=== PATIENT | female | born 1945 | race Caucasian/White ===

== ENCOUNTER 2016-04-29 07:18 | Day surgery (SDC) | payer MEDICARE ==
[~2016-04-29] VITALS: Ht 160 cm; Wt 54.0 kg
[~2016-04-29 07:18] MED LIST: CALC-3 PO; CROM10DR2 OP; LEVO75TA4 PO; MELO15TA14 PO; MULT1CAP33 PO
[2016-04-29 07:32] VITALS: BP 151/85; PULSE 67; RESP 16; O2SAT 99
[2016-04-29] MEDS ORDERED: CHOL10008 PO (07:37)
[2016-04-29] MEDS ORDERED: Sodium Chloride LOK Flush 10 mL Syringe IV PRN (07:40)
[2016-04-29] MEDS ORDERED: fentaNYL-PF 50 mCg/mL 2 mL Inj IVPUSH PRN (07:40)
[2016-04-29] MEDS: 0.9% Sodium Chloride 1,000 ML IV PRN ×2 (07:41→08:15)
[2016-04-29 08:38] VITALS: BP 161/81; PULSE 67; RESP 16; O2SAT 97
--- NOTE | 2016-04-29 08:38 | PCM.ENDCOL ---
Colonoscopy Date of Service: Apr 29, 2016 Physician Ricardo Natarajan MD Pre Procedure Diagnosis: Screening colon cancer history of colon polyp Post Procedure Dx & Findings: Colon polyp hemorrhoids and diverticuli Procedure Colonoscopy Prep adequate Withdrawal 18 minutes PROCEDURE IN DETAIL: After unremarkable examination of the Olympus video colonoscope was inserted patient's anal canal and was advanced to cecum. Landmarks are identified including the ileocecal valve and appendiceal orifice. Scope was withdrawn systematically. In the transverse colon, there was a 2 mm polyp completely using cold snare. In the sigmoid colon there was a 1 mm polyp which was removed completely using cold forceps. In the sigmoid colon there was a 3 mm polyp which was removed completely using cold snare. The mucosa of the cecum, ascending, transverse, descending, sigmoid, rectal mucosa lined with whitish, pink, smooth, glistening, normal-appearing mucosa, normal fine branching, underlying vascularity, normal haustra. The patient tolerated procedure and was transported to observation area. In the sigmoid colon there are several medium-sized diverticula. In the rectum retroflexion was done which showed hemorrhoids and anal canal was inspected carefully on the way out and hemorrhoids noted. Impression Polyps 3 status post complete removal Hemorrhoids Diverticuli Personal history of colon polyp Recommendation Repeat colonoscopy 3 years Diverticular diet Presedation Assessment Risks and Benefits Informed consent was obtained from the patient after all risks and benefits including but not limited to drug reaction, infection, pain, bleeding, perforation, as well as alternatives were discussed. Patient monitoring Continuous pulse oximetry, cardiac monitoring, blood pressure monitoring, IV access, and oxygen at 2L per nasal cannula. Periprocedural Fentanyl: Fentanyl 125mcg Incrementally Midazolam: Midazolam 6mg Incrementally Complications There were no periprocedural complications identified. Post Procedure Plan Post Procedure Recommendations 1. Restrict activities today. 2. Resume normal activities in the morning. 3. Resume medications. 4. Patient informed of normal post procedure side effects as bloating, drowsiness, blood streaking in the stool. 5. average risk CRCS. If colon polyps come back as: -Hyperplastic- can repeat colonoscopy in 10 years -Tubular adenoma- repeat colonoscopy in 5 years -Tubulovillous/villous adenoma- repeat colonoscopy in 3 years -If any dysplasia- return to clinic as soon as possible 6. Please don't hesitate to call me with any questions. Ricardo Natarajan MD Apr 29, 2016 08:38
[2016-04-29 08:48] VITALS: BP 171/84; PULSE 70; RESP 16; O2SAT 97
[2016-04-29 08:57] VITALS: BP 168/95; PULSE 69; RESP 16; O2SAT 97
--- NOTE | 2016-04-30 11:00 | PATH ---
SURGICAL PATHOLOGY Attending Physician:Ricardo Natarajan M.D. CASE STATUS: Signed Out PATIENT NAME: DANIELA CASTILLO PID: [id number] : 1945 DATE COLLECTED:04/29/2016 16:04 SPECIMEN: 1: Colon, Biopsy 2: Colon, Biopsy CLINICAL HISTORY: 1.TRANSVERSE POLYP 2.SIGMOID POLYP FINAL DIAGNOSIS: 1.TRANSVERSE COLON POLYP: TUBULAR ADENOMA INVOLVING BOTH BIOPSY FRAGMENTS. 2.SIGMOID COLON POLYP: TUBULAR ADENOMA. ICD10 CODE D12.3 GROSS DESCRIPTION: The specimen is received in two formalin filled containers labeled with the patient's name. 1). The specimen is sublabeled "transverse polyp" and consists of 2 portions of tissue which aggregate to 0.4 x 0.3 x 0.2 CM. The specimen is entirely submitted in cassette 1A. 2). The specimen is sublabeled "sigmoid polyps" and consists of a 0.4 x 0.3 x 0.2 CM portion of tissue which is entirely submitted in cassette 2A. 04/29/2016 DAC MICRO DESCRIPTION: See diagnosis. ICD-9 CODES: CPT CODES: 1: 44170 2: 14853 Electronically Signed Out Bernard Hamilton MD [facility] [address], [place] [address] Technical component performed at [facility], [address] [place] [address] [address], [place], [address]
== END 2016-04-29 23:59 | disposition home or self-care (01) ==
LOC: END 07:18
PROVIDERS: ATTEND Internal Medicine
DX: Z12.11 Encounter for screening for malignant neoplasm of colon (principal); D12.3 Benign neoplasm of transverse colon; D12.5 Benign neoplasm of sigmoid colon; K64.8 Other hemorrhoids; K57.30 Diverticulosis of large intestine without perforation or abscess without bleeding; Z86.010 Personal history of colon polyps; E03.9 Hypothyroidism, unspecified; F32.9 Major depressive disorder, single episode, unspecified; G47.00 Insomnia, unspecified; Z87.891 Personal history of nicotine dependence
CPT/HCPCS: 45380; 45385; 99153; G0500; J2250; J3010; J7030